=== PATIENT | male | born 1975 | race Caucasian/White ===

== ENCOUNTER 2022-06-15 13:19 | Emergency (ER) | payer OTHER, SELFPAY ==
[2022-06-15 13:40] VITALS: BP 146/107; PULSE 95; RESP 16; TEMP 36.4; O2SAT 94; BMI 35.5
[2022-06-15] MEDS: BUPIVACAINE 0.25% 30 ML INJECTION (15:50)
--- NOTE | 2022-06-16 00:34 | ED_ITS ---
HPI - Male Genitourinary General Chief complaint: Urogenital Problems, Male Stated complaint: Hemorrhoids Time Seen by Provider: 06/15/22 13:56 History of Present Illness HPI Narrative: 46-year-old man here with complaint of anal area pain suspects related to hemorrhoid. Has been treating with preparation H and lidocaine cream. Notes excision about a year ago for similar. Just can not get comfortable. Baseline but 3/10 pain and when coughs or increases intra-abdominal pressure in that way, pain goes up to a 9. No fever. No hematochezia described. Related Data Home Medications Medication Instructions Recorded Confirmed albuterol sulfate 90 mcg/actuation 1 inh inhalation Q6H PRN 06/15/22 06/15/22 aerosol inhaler (Ventolin HFA) fluticasone 250 mcg-salmeterol 50 1 inh inhalation Q12H 06/15/22 06/15/22 mcg/dose blistr powdr for inhalation (Advair Diskus) losartan 50 mg tablet 50 mg PO DAILY 06/15/22 06/15/22 rosuvastatin 20 mg tablet 20 mg PO DAILY 06/15/22 06/15/22 Allergies Allergy/AdvReac Type Severity Reaction Status Date / Time No Known Drug Allergies Allergy Verified 06/15/22 13:48 Review of Systems Status of ROS: Reports: 6 or more systems reviewed and unremarkable except as noted in History and below PFSH PFS Social History Smoking Status: Unknown if ever smoked Exam Narrative: Exam Narrative: Pleasant. Calm. Winces with transitions. Breathing easily. Skin is warm and dry. Heart is in a mildly elevated rate. Abdomen is overweight soft. Anal exam shows a moderate hemorrhoidal swelling without inflammation at the 12 o'clock position but right of midline. There is a palpable nodule and is quite tender. Had anticipated anoscopy but this was not done. Const: Vital Signs, click to edit/add: Vital Signs - 24 hr 06/15/22 13:40 Temperature 97.5 F L Pulse Rate [Pulse Oximeter] 95 Respiratory Rate 16 Blood Pressure [Ri ght Upper Arm] 146/107 H Pulse Oximetry 94 Oxygen Delivery Me thod Room Air Documenting provider has reviewed patient's vital signs: yes Course Vital Signs Vital signs: Initial Vital Signs Temperature 97.5 F L 06/15/22 13:40 Temperature Source Temporal Artery Scan 06/15/22 13:40 Pulse Rate 95 06/15/22 13:40 Pulse Rhythm 06/15/22 13:40 Pulse Strength 3+ Normal 06/15/22 13:40 Respiratory Rate 16 06/15/22 13:40 Blood Pressure 146/107 H 06/15/22 13:40 Blood Pressure Mean 120 06/15/22 13:40 Blood Pressure Position Semi-Fowlers 06/15/22 13:40 Pulse Oximetry 94 06/15/22 13:40 Oxygen Delivery Method 06/15/22 13:40 Vital Signs Temperature 97.5 F L 06/15/22 13:40 Pulse Rate 95 06/15/22 13:40 Respiratory Rate 16 06/15/22 13:40 Blood Pressure 146/107 H 06/15/22 13:40 Pulse Oximetry 94 06/15/22 13:40 Oxygen Delivery Method 06/15/22 13:40 Temperature 97.5 F L 06/15/22 13:40 Pulse Rate 95 06/15/22 13:40 Respiratory Rate 16 06/15/22 13:40 Blood Pressure 146/107 H 06/15/22 13:40 Pulse Oximetry 94 06/15/22 13:40 Oxygen Delivery Method 06/15/22 13:40 MDM - Male Genitourinary MDM Narrative Medical decision making narrative: I do not see an actual inflamed thrombosed hemorrhoid here. For recommendations were to continue conservative management given uncertainty of resolution of pain with any intervention. I did discuss with a general surgeon for further recommendations for care and follow-up. Mr. Lees was very patient in an extended emergency department visit. As we had discussed prior he opted to proceed with bupivacaine injection. This was fanned with a total of 5 mL from the 12 o'clock position. This did provide I think a little relief. I am not sure that full effect was apparent ultimately on departure. Further treatment plan in patient departure information Medical Records Attestation: I reviewed the patient's medical records. Lab Data Attestation: I reviewed the patient's lab results. Discharge Plan Discharge Clinical Impression: External hemorrhoid, thrombosed Patient Disposition: Home, Self-Care Condition: Improved Additional Instructions: Critical to keep stools soft. Keep hydrating as you mentioned. Consider adding MiraLax equivalent taking 1-3 doses by noon adjusting to stool consistency. Stools can be softened also with Dulcolax/docusate sodium. Recommendations were also for Sitz baths --sitting in warm water with or without Epsom salt twice a day or after defecation. You might also try a toilet top bidet. Push fruits and fiber. Yes, avoid cheese, rice, breads as all of these things can be constipating. Can continue with your lidocaine ointment/cream as needed. Can use preparation H or equivalent with hydrocortisone cream as well. Witch Esperanza comes in a variety of forms. This is also an astringent and anesthetic. I would take ibuprofen or naproxen regularly dosed with a little bit of food over this week. Could take the ibuprofen up to 800 mg 3 times daily or the naproxen up to 500 mg 2 times daily. Either can be combined with up to 1000 mg of acetaminophen. Remember that each tablet of Tylenol 3 contains 300 mg of acetaminophen. Given your concerns of constipation with opiates, might want to pair the Tylenol 3 with 1-2 tablets of senna daily. I spoke with Dr. Zhang in general surgery today. You might want to schedule a follow-up for a week or 2 from now to discuss next steps in care. Tylenol 3 from [facility]. Prescriptions: No Action losartan 50 mg tablet 50 mg PO DAILY rosuvastatin 20 mg tablet 20 mg PO DAILY albuterol sulfate [Ventolin HFA] 90 mcg/actuation HFA aerosol inhaler 1 inh inhalation Q6H PRN fluticasone propion-salmeterol [Advair Diskus] 250-50 mcg/dose blister with device 1 inh inhalation Q12H Follow Up/Referrals: Provider,Not a Local [Primary Care Provider] - Stand Alone Forms: [employer] Info Instructions
== END 2022-06-15 16:17 | disposition home or self-care (01) ==
PROVIDERS: Emergency Provider Family Medicine
DX: K64.8 Other hemorrhoids (principal)
CPT/HCPCS: 99283; 99284; J3490